=== PATIENT | male | born 1970 | race Caucasian/White ===

== ENCOUNTER 2019-10-03 12:07 | Inpatient (IN) | payer SELFPAY ==
[2019-10-03] VITALS (259 sets, daily range): BP systolic 97; BP diastolic 74; PULSE 88; TEMP 97.5; O2SAT 62–100
[~2019-10-03] VITALS: Ht 182.9 cm; Wt 65.4 kg
[~2019-10-03 12:07] MED LIST: LORTAB 5/500 501 TAB PO; NO HOME MEDICATIONS
[2019-10-03 14:33] LABS: HEMATOCRIT 41.4 % (42.0-52.0); HEMOGLOBIN 13.7 g/dl (13.5-18.0); MEAN CELL VOLUME 89 fl (80.0-100.0); MEAN CORPUSCULAR HEMOGLOBIN 30 pg (27.0-31.0); MEAN CORPUSCULAR HGB CONC 33 g/dl (33.0-37.0); MEAN PLATELET VOLUME 8.4 fl (7.4-10.4); PLATELET COUNT 317 K/mm3 (130-400); RED BLOOD COUNT 4.65 M/mm3 (4.20-5.60); REDCELL DISTRIBUTION WIDTH-CV 13.7 % (11.5-14.5)
[2019-10-03 14:47] LABS: ALBUMIN 3.7 gm/dL (3.5-5.0); BILIRUBIN,TOTAL 0.9 mg/dL (0.0-1.0); CREATININE, serum 1.17 (0.66-1.25); POTASSIUM 4.3 mmol/L (3.4-5.0); TOTAL PROTEIN 7.1 gm/dL (6.4-8.2)
[2019-10-03 15:11] LABS: C-REACTIVE PROTEIN 42.6 mg/dL (0.0-0.9)
[2019-10-03 15:42] LABS: BAND 15 % (0-10); LYMPHOCYTE 9 % (20.0-51.0); NEUTROPHILS 71 % (42.0-75.2)
[2019-10-03 15:44] LABS: PLATELET ESTIMATE NORMAL (NORMAL)
[2019-10-03 16:12] LABS: TROPONIN-I < 0.012 ng/mL (0.000-0.035)
--- NOTE | 2019-10-03 19:22 | NUR ---
report received from ABNER Cerrato.
--- NOTE | 2019-10-03 19:40 | NUR ---
PT ARRIVED IN UNIT, ALERT AND ORINETED X 4, ON RA, DENIES PAIN EXCEPT WHEN HE TAKES DEEP BREATH, AND VS WNL. TISHA ALSO AT BEDSIDE TO PUT PICC LINE IN.
[2019-10-04] VITALS (906 sets, daily range): BP systolic 102–123; BP diastolic 68–79; PULSE 78–98; TEMP 97.1–100.3; O2SAT 59–100
[2019-10-04 04:35] LABS: MEAN CELL VOLUME 89 fl (80.0-100.0); MEAN CORPUSCULAR HGB CONC 33 g/dl (33.0-37.0); MEAN PLATELET VOLUME 8.6 fl (7.4-10.4); PLATELET COUNT 316 K/mm3 (130-400); RED BLOOD COUNT 3.74 M/mm3 (4.20-5.60); REDCELL DISTRIBUTION WIDTH-CV 13.8 % (11.5-14.5)
[2019-10-04 04:45] LABS: ALBUMIN 2.8 gm/dL (3.5-5.0); BILIRUBIN,TOTAL 0.5 mg/dL (0.0-1.0); CREATININE, serum 1.03 (0.66-1.25); POTASSIUM 3.9 mmol/L (3.4-5.0); TOTAL PROTEIN 5.7 gm/dL (6.4-8.2)
[2019-10-04 04:51] LABS: HEMATOCRIT 33.2 % (42.0-52.0); HEMOGLOBIN 11.1 g/dl (13.5-18.0); MEAN CORPUSCULAR HEMOGLOBIN 30 pg (27.0-31.0)
[2019-10-04 04:52] LABS: INR 1.4 (0.8-3.0); PROTHROMBIN TIME 16.1 SECONDS (9.7-12.8)
[2019-10-04 05:18] LABS: BAND 50 % (0-10); LYMPHOCYTE 8 % (20.0-51.0); METAMYELOCYTE 2 % (0-0); NEUTROPHILS 40 % (42.0-75.2); PLATELET ESTIMATE NORMAL (NORMAL)
[2019-10-04 05:19] LABS: TEAR DROP CELLS 1+
--- NOTE | 2019-10-04 07:30 | NUR ---
Report recieved from Mirna LEVINE. Patient sleeps quietly in bed with call light at side.
--- NOTE | 2019-10-04 07:31 | NUR ---
report given to ABNER Rivas.
--- NOTE | 2019-10-04 11:18 | NUR ---
SW's met with the patient to discuss discharge plan. The patient just moved to [place] from [place] with his mother (Geetha) and oldest son (David). He states that his , Holli (ph#[phone]), is still living in [place] due to her job. He reports independence with ADLs and has a cane. The patient's PCP is Dr. Rd Mas in [place] and he receives his medications at [facility]. He reports no difficulties obtaining his meds. The patient confirmed that he is self pay. He states that his insurance lapsed. Financial Counseling has been consulted. The patient does not have advanced directives and he was not interested in completing them at this time. The patient plans to return home with his family upon discharge. No additional needs at this time.
--- NOTE | 2019-10-04 17:10 | NUR ---
Report called to Claudia LEVINE on medical floor and patient transfers to room 358 via wheel chair. Settled into bed and call light in reach, no staff in room to greet patient. Nurse made aware of arrival.
--- NOTE | 2019-10-04 18:49 | NUR ---
Received report from Evelyn LEVINE. Patient was seen in room, resting in bed. IV fluids are infusing to PICC to right upper arm. He does state the site is sore, I did unrap and assess and there is no redness, swelling or drainage to the site. Left lung is coarse, right side clear. HR is regular. Abd sounds are audible. Reports having no difficulty urnating. Does state he fatigues easily. No fever recorded upon arrival to floor. Fluids are infusing, normal saline is at 75/hr. Teeth are noted to be in poor condition. Does request shower this evening. Skin is observed to have some random scabbing to it. Denies having skin issues to buttocks, back or heels. Denies pain currently. Report given to ABNER Garcia.
--- NOTE | 2019-10-04 19:20 | NUR ---
Patient assessed at this time. Alert and oriented x 4, and able to make needs known. Denies having pain and discomfort at this time. Double lumen PICC to right upper arm. NS running at 75 ml/hr. INT to left forearm. Flushed. Site is without redness, warmth, swelling, and pain. Denies having SOB and dyspnea. LS CTA. Respirations even and unlabored. Occasional cough. Reports no sputum production. HRR. Telemetry in place: sinus. Capillary refill less than 3 seconds. Non-tenting skin turgor. BSAx4. Abdomen soft and non-tender. No edema. Voices no questions, needs, or concerns at this time. Resting in bed with call light within reach.
--- NOTE | 2019-10-04 21:30 | NUR ---
Patient assisted with shower as requested.
--- NOTE | 2019-10-04 23:55 | NUR ---
Patient's temperature was 100.3. Called ROSEANN Damon. New order received for Acetaminophen 650 mg PO Q4H PRN for fever. Given at this time per orders.
[2019-10-05 03:05] VITALS: BP 109/70; PULSE 76; TEMP 97.6
--- NOTE | 2019-10-05 05:13 | NUR ---
Patient has been afebrile since receiving PRN Acetaminophen around midnight. Voices no questions, needs, or concerns at this time. Has denied having pain and discomfort. Resting in bed with call light within reach.
[2019-10-05 05:45] LABS: BASO % 0.3 % (0.0-2.0); EOS # 0.2 (0.0-0.7); EOS % 1.8 % (0-4.0); GRAN # 7.7 (1.4-6.5); GRAN % 77.8 % (42.2-75.2); HEMOGLOBIN 11.1 g/dl (13.5-18.0); LYMPH # 1.5 (1.2-3.4); LYMPH % 15.1 % (20.0-51.0); MEAN CELL VOLUME 90 fl (80.0-100.0); MEAN CORPUSCULAR HEMOGLOBIN 29 pg (27.0-31.0); MEAN CORPUSCULAR HGB CONC 33 g/dl (33.0-37.0); MEAN PLATELET VOLUME 8.8 fl (7.4-10.4); MONO # 0.5 (0.1-0.6); MONO % 4.7 % (1.7-9.3); PLATELET COUNT 281 K/mm3 (130-400); RED BLOOD COUNT 3.77 M/mm3 (4.20-5.60)
[2019-10-05 05:52] LABS: HEMATOCRIT 33.8 % (42.0-52.0)
[2019-10-05 05:55] LABS: INR 1.2 (0.8-3.0); PROTHROMBIN TIME 13.4 SECONDS (9.7-12.8)
[2019-10-05 06:04] LABS: ALBUMIN 2.8 gm/dL (3.5-5.0); BILIRUBIN,TOTAL 0.4 mg/dL (0.0-1.0); CALCIUM 8.5 mg/dL (8.4-10.2); CREATININE, serum 0.81 (0.66-1.25); TOTAL PROTEIN 5.9 gm/dL (6.4-8.2)
--- NOTE | 2019-10-05 07:00 | NUR ---
REPORT RCVD FROM ABNER MERINO. PT IS SLEEPING. WILL RETURN FOR ASSESSMENT. CALL LIGHT IN REACH.
--- NOTE | 2019-10-05 10:15 | NUR ---
PT IS SUPPOSED TO INFORM RN OF URINATION SO WE CAN BEGIN COLLECTING A 24HR UA. PT HAS BEEN POURING URINE INTO THE 24HR U/A COLLECTION CONTAINER AND IT HAS NOT BEEN ON ICE. CONTACTED LAB WHO STATES WE NEED TO START OVER. PT WAS EDUCATED BY ABNER MERINO TO INFORM NURSING STAFF WHEN HE URINATED SO WE COULD START THE COLLECTION TIME. SINCE THE URINE HAS BEEN SITTING OUT, WE RESTART THE TIME AT 1000.
[2019-10-05 12:02] VITALS: BP 124/72; PULSE 76; TEMP 97.8
[2019-10-05 16:40] VITALS: BP 121/75; PULSE 79; TEMP 97.8
[2019-10-05 18:52] VITALS: BP 124/72; PULSE 77; TEMP 98.1
--- NOTE | 2019-10-05 20:15 | NUR ---
PT HAD AN UNEVENTFUL DAY. CONTINUES TO PRODUCE URINE FOR PT'S 24H UA. URINE JUG ON ICE, AND FILLED APPROXIMATELY HALF WAY. NO FURTHER CONCERNS AT THIS TIME. REPORT GIVEN TO ABNER MOTT.
--- NOTE | 2019-10-05 20:30 | NUR ---
Initial shift assessment done- no requests, denies pain/SOB, has been resting past couple hours-- states should go home tomorrow,, 24 hr urine in progress, Tele on, PICC to EUGENE
[2019-10-05 23:17] VITALS: BP 114/69; PULSE 82; TEMP 98.9
[2019-10-06 03:11] VITALS: BP 111/69; PULSE 69; TEMP 98.6
--- NOTE | 2019-10-06 06:02 | NUR ---
Quiet night-- has been resting well all night- no requests. temp 98.7
--- NOTE | 2019-10-06 06:45 | NUR ---
PT IS SLEEPING IN BED AT THIS TIME. NO C/O PAIN OR DISCOMFORT. 24H UA IS TO BE FINISHED AT 1000. NO FURTHER CONCERNS AT THIS TIME. CALL LIGHT WITHIN REACH.
[2019-10-06 07:26] LABS: BASO % 0.4 % (0.0-2.0); EOS # 0.3 (0.0-0.7); EOS % 2.6 % (0-4.0); GRAN # 7.8 (1.4-6.5); GRAN % 76.1 % (42.2-75.2); HEMOGLOBIN 11.6 g/dl (13.5-18.0); LYMPH # 1.4 (1.2-3.4); MEAN CELL VOLUME 89 fl (80.0-100.0); MEAN CORPUSCULAR HEMOGLOBIN 29 pg (27.0-31.0); MEAN CORPUSCULAR HGB CONC 33 g/dl (33.0-37.0); MEAN PLATELET VOLUME 8.7 fl (7.4-10.4); MONO # 0.7 (0.1-0.6); MONO % 6.4 % (1.7-9.3); PLATELET COUNT 335 K/mm3 (130-400); RED BLOOD COUNT 3.97 M/mm3 (4.20-5.60); REDCELL DISTRIBUTION WIDTH-CV 13.9 % (11.5-14.5)
[2019-10-06 07:41] LABS: HEMATOCRIT 35.5 % (42.0-52.0)
[2019-10-06 07:47] LABS: CALCIUM 8.9 mg/dL (8.4-10.2); CREATININE, serum 0.78 (0.66-1.25); POTASSIUM 3.7 mmol/L (3.4-5.0)
[2019-10-06 08:00] VITALS: BP 118/71; PULSE 74; TEMP 98.5
--- NOTE | 2019-10-06 09:12 | NUR ---
DR. ONTIVEROS ROUNDED, AND HAS DECIDED TO DISCHARGE PATIENT. WILL BEGIN DISCHARGE PROCESS.
[2019-10-06] MEDS ORDERED: ZITHROMAX Z PA250 MG PO (09:13)
--- NOTE | 2019-10-06 13:23 | NUR ---
plan: To return home with mother Rochelle [phone] and son as care support. Patient denied having a DPOA and declined one at this time. They reside in [facility]. Assess: Sw met with patient at his bedside. patient denied using any DME and reported that he recently moved so he does not have a PCP, and no follow up appointments. patient reports that he gets his medications from [facility] with no concerns. Patient delcined any needs at this time. Action: Sw educated patient about community resources and possible clinics for care. No additional concerns noted.
[2019-10-06 13:45] LABS: URINE TOTAL VOLUME 2735 mL
[2019-10-06 13:46] LABS: URINE 24 HOUR SODIUM 399 mmol/24h (40-220)
--- NOTE | 2019-10-06 15:16 | NUR ---
PT HAS SPENT THE MAJORITY OF THE DAY WAITING FOR HIS RIDE TO ARRIVE. PT HAS NOW DISCHARGED. NO FURTHER CONCERNS.
== END 2019-10-06 15:18 | disposition home or self-care (01) | DRG 871 ==
LOC: COL.ER 12:07 → IMCU 17:27 → MEDICAL 10-04 17:53
PROVIDERS: Hospitalist; Physician Assistant; ADMIT Student in an Organized Health Care Education/Training Program
PROC: 02HV33Z Insertion of Infusion Device into Superior Vena Cava, Percutaneous Approach (ICD-10-PCS; principal; 2019-10-03)
DX: A40.3 Sepsis due to Streptococcus pneumoniae (principal); J18.9 Pneumonia, unspecified organism; R65.20 Severe sepsis without septic shock; E87.1 Hypo-osmolality and hyponatremia; K04.7 Periapical abscess without sinus; R59.1 Generalized enlarged lymph nodes; E87.8 Other disorders of electrolyte and fluid balance, not elsewhere classified; D64.9 Anemia, unspecified; F17.210 Nicotine dependence, cigarettes, uncomplicated; Z88.0 Allergy status to penicillin
CPT/HCPCS: 99223-AI; 99231-AI; 99232-AI; 99239; C1751; G0378; J0456; J0696; J1650; J1885; J7030; J7050; Q9967